=== PATIENT | female | born 1995 | race Caucasian/White ===

== ENCOUNTER 2024-02-15 21:51 | Emergency (ER) | payer OTHER, SELFPAY ==
[2024-02-15 21:55] VITALS: BP 162/106; PULSE 81; RESP 16; TEMP 36.2; O2SAT 100; BMI 22.3
--- NOTE | 2024-02-15 22:31 | ED.WOUNDLAC ---
HPI - Wound/Laceration General Time Seen by Provider: 22:17 Date Seen: 02/15/24 Chief Complaint: Nose Injury/Pain Stated Complaint: Fall, nose lac Time Seen by Provider: 02/15/24 22:17 Source: patient and family ( present) Mode of arrival: ambulatory Limitations: no limitations History of Present Illness HPI narrative: This 28-year-old female was coming into her horse barn, tripped over some rubber matting and hit herself on a metal bar, possibly a bolt that was protruding from it. Tetanus is up-to-date in 2020. There was no loss of consciousness. She sustained a laceration to the bridge of her nose. She did clean this at home, did clean it with hydrogen peroxide. It did bleed. Her nose is sore. No neck pain, no head injury. She maybe had some blood about the right nares. Bleeding is contained at this time. Related Data Home Medications ?Medication ?Instructions ?Recorded ?Confirmed etonogestrel 0.12 mg-ethinyl 1 vag ring vaginal Q4W 02/15/24 02/15/24 estradiol 0.015 mg/24 hr vaginal ring (NuvaRing) fluoxetine 10 mg capsule 10 mg PO DAILY 02/15/24 02/15/24 Previous Rx's ?Medication ?Instructions ?Recorded amoxicillin 875 mg-potassium 1 tab PO BID #13 tabs 02/15/24 clavulanate 125 mg tablet Allergies Allergy/AdvReac Type Severity Reaction Status Date / Time Sulfa (Sulfonamide Allergy Mild hives Verified 02/15/24 22:02 Antibiotics) Review of Systems Narrative: As per HPI. PFSH PFSH Social History Smoking Status: Never smoker How often do you have a drink containing alcohol: monthly or less How many standard drinks containing alcohol do you have on a typical day: 3 or 4 How often do you have six or more drinks on one occasion: Never AUDIT-C Alcohol total score: 2 Non-prescribed substance use: denies use Exam Const: Vital Signs, click to edit/add: Vital Signs - 24 hr 02/15/24 21:55 Temperature 97.1 F L Pulse Rate [Left P ulse Oximeter] 81 Respiratory Rate 16 Blood Pressure [Ri ght Upper Arm] 162/106 H Pulse Oximetry 100 Oxygen Delivery Me thod Room Air This 28-year-old female is ambulatory into the ED of her own accord. She is alert, interactive, no apparent distress. The bridge of her nose is swollen, there is some tenderness over this area. In the center there is a small little stellate laceration. At rest, the wound edges do look well approximated but I can open them and they do go into the subcutaneous tissue. Both of her nares are patent, no active bleeding, no swelling noted, no residual blood noted. The bridge of her nose is the isolated area of trauma. Documenting provider has reviewed patient's vital signs: yes Course Course ED Course: Nursing staff irrigated wound, wound was anesthetized with 1% lidocaine, 3 mL total drawn up. Initial anesthesia with 1 mL seemed adequate. Procedure note: Following standard sterile technique, patient had 2 simple interrupted sutures for stabilization and reapproximation of her nasal laceration. She was quite tender on the bridge of her nose, seemed to be swelling more. Did discuss with her that I would recommend imaging of the nasal bones, standard of care is to do facial CT. She did agree. Reevaluation(s) Time of Reevaluation #1: 23:47 Reevaluation #1: Reviewed that the CT showing bilateral nasal fractures. Given this information, she will be covered with antibiotics. Will give her her 1st dose of Augmentin 875 mg here, rest is sent to the pharmacy. We have discussed wound management. We have discussed follow-up with ENT. Vital Signs Vital signs: Initial Vital Signs Temperature 97.1 F L 02/15/24 21:55 Temperature Source Temporal Artery Scan 02/15/24 21:55 Pulse Rate 81 02/15/24 21:55 Pulse Rhythm Regular 02/15/24 21:55 Respiratory Rate 16 02/15/24 21:55 Blood Pressure 162/106 H 02/15/24 21:55 Blood Pressure Mean 124 H 02/15/24 21:55 Blood Pressure Position Sitting 02/15/24 21:55 Pulse Oximetry 100 02/15/24 21:55 Oxygen Delivery Method Room Air 02/15/24 21:55 Vital Signs Temperature 97.1 F L 02/15/24 21:55 Pulse Rate 81 02/15/24 21:55 Respiratory Rate 16 02/15/24 21:55 Blood Pressure 162/106 H 02/15/24 21:55 Pulse Oximetry 100 02/15/24 21:55 Oxygen Delivery Method Room Air 02/15/24 21:55 Temperature 97.1 F L 02/15/24 21:55 Pulse Rate 81 02/15/24 21:55 Respiratory Rate 16 02/15/24 21:55 Blood Pressure 162/106 H 02/15/24 21:55 Pulse Oximetry 100 02/15/24 21:55 Oxygen Delivery Method Room Air 02/15/24 21:55 Medications Administered Medications: Discontinued Medications Generic Name Dose Route Start Last Admin Trade Name Negra PRN Reason Stop Dose Admin Lidocaine HCl 3 ml 02/15/24 22:34 02/15/24 22:43 Lidocaine 1% Mdv INJECTION 02/15/24 22:35 3 ml ONCE ONE Administration MDM - Wound/Laceration Imaging Data CT- Other: Attestation: I have reviewed the pertinent imaging results. Radiologist's impression: Patient: BARBIE KEYES Facility:?[facility] Patient ID:?[id number] Site Patient ID:?[id number]. Site :?1993 Study:?CT-Facial W/O-02/15/2024 11:15:59 PM Ordering Physician:?Felipa Bullock Final Report: Indication: Nasal injury Technique: CT through the maxillofacial structures with multiplanar reformats without contrast Comparison: None Findings: Orbits: Periorbital tissues are unremarkable. Intraorbital tissues are unremarkable. No orbital fracture appreciated. Paranasal sinuses: No acute abnormality appreciated. Mild sinus disease. Mastoid air cells: No significant abnormality appreciated. Maxilla: No acute fracture. Mandible: No acute fracture. Zygomatic arch, squamous temporal bone, and pterygoid plates: No acute fracture. Nasal bones: Bilateral nasal bone fractures. Visualized cervical spine: No acute abnormality appreciated. Other: No other significant abnormality appreciated. Impression: None bilateral nasal bone fractures. Please note that all CT scans at this facility use dose modulation, iterative reconstruction, and/or weight-based dosing when appropriate to reduce radiation dose to as low as reasonably achievable. Dictated by Isidro Colin MD @ 02/15/2024 11:36:39 PM (Electronic Signature) Discharge Plan Discharge Clinical Impression: Laceration of nose Qualifiers: Encounter type: initial encounter Qualified Code(s): S01.21XA - Laceration without foreign body of nose, initial encounter Fracture of nasal bone Qualifiers: Encounter type: initial encounter Fracture type: open Qualified Code(s): S02.2XXB - Fracture of nasal bones, initial encounter for open fracture Patient Disposition: Home, Self-Care Condition: Stable Instructions: Facial Fracture (ED), Facial Laceration (ED) Additional Instructions: Start antibiotics and take as prescribed. 1st dose was given here in the ER tonight. Use ice, elevate your head as much as you are able to to sleep for the next few nights, this will help decrease swelling. Use bacitracin to the sutures. Need to call the ENT clinic to get scheduled for a follow-up and re-evaluation next week. Phone number to call is [phone]. These sutures may be ready to come out when you see ENT if it is later next week. Activity Level: Activity as Tolerated Prescriptions: New amoxicillin-pot clavulanate 875-125 mg tablet 1 tab PO BID Qty: 13 0RF No Action fluoxetine 10 mg capsule 10 mg PO DAILY etonogestrel-ethinyl estradiol [NuvaRing] 0.12-0.015 mg/24 hr ring 1 vag ring vaginal Q4W Rx Instructions: leave in place for 3 weeks of a 4-week cycle Follow Up/Referrals: Provider,Not a Local [Non-Staff] - Stand Alone Forms: [employer] Info Instructions
[2024-02-15] MEDS: LIDOCAINE 1% MDV 3 ML INJECTION (22:43)
--- NOTE | 2024-02-15 22:53 | CRLHL7_ITS ---
For Patients: As a result of the Cures Act, medical imaging exams and procedure reports are released immediately into your electronic medical record. You may view this report before your referring provider. If you have questions, please contact your health care provider. Indication: Nasal injury Technique: CT through the maxillofacial structures with multiplanar reformats without contrast Comparison: None Findings: Orbits: Periorbital tissues are unremarkable. Intraorbital tissues are unremarkable. No orbital fracture appreciated. Paranasal sinuses: No acute abnormality appreciated. Mild sinus disease. Mastoid air cells: No significant abnormality appreciated. Maxilla: No acute fracture. Mandible: No acute fracture. Zygomatic arch, squamous temporal bone, and pterygoid plates: No acute fracture. Nasal bones: Bilateral nasal bone fractures. Visualized cervical spine: No acute abnormality appreciated. Other: No other significant abnormality appreciated. Impression: None bilateral nasal bone fractures. Please note that all CT scans at this facility use dose modulation, iterative reconstruction, and/or weight-based dosing when appropriate to reduce radiation dose to as low as reasonably achievable. Dictated by Isidro Colin MD @ 02/15/2024 11:36:39 PM (Electronically Signed)
--- OUTSIDE RECORDS SUMMARY | 2024-02-15 23:46 | XMS_ITS | Clinical Summary ---
Author Organization [facility] Address [place], [place] [address] Care Team Providers Care Biomedical Equipment Technician Name Role Phone Silvana Solis MD Primary Care Provider [phone] Allergies Active Allergy Reactions Criticality Noted Date Comments Sulfa (Sulfonamide Antibiotics) Hives 02/25 Medications Medication Sig Dispensed Refills Start Date End Date Status triamcinolone (ARISTOCORT; KENALOG) 0.1 % creamIndications:Loc alized skin eruption Apply topically to affected area(s) three times daily. 80 g 08/23/2023 Active Haloette vaginal ringIndications:Enco unter for counseling regarding contraception INSERT 1 RING VAGINALLY AND LEAVE IN PLACE FOR 3 CONSECUTIVE WEEKS, THEN REMOVE FOR 1 WEEK. REPEAT WITH NEW RING 3 Each 2 09/21/2023 Active FLUoxetine (PROZAC) 10 mg capsuleIndications:A nxiety Take 1 Capsule (10 mg) by mouth once daily in the morning. 90 Capsule 2 12/22/2023 Active hydrOXYzine HCL (ATARAX) 25 mg tabletIndications:In somnia, idiopathic Take 1 Tablet (25 mg) by mouth at bedtime if needed for Anxiety (sleep). 30 Tablet 2 12/22/2023 Active Active Problems Problem Noted Date Diagnosed Date Pap smear for cervical cancer screening 07/27/19 23 Overview: 07/2022 NIL/HPV negative Plan: Pap/HPV due in 5 years Encounters Date Type Department Care Team Description 12/21/2023 Refill [facility] [address] [place] [address] Silvana Solis MD Refill Request from Last 3 Months Immunizations Name Administration Dates Next Due COVID-19 vaccine (Moderna 100mcg/0.5mL) PF, MDV 11/12/2020,10/15/2020 DTP-HIB 10/17/1994, 4,1993,06/04 DTaP 03/27/1998 Hepatitis B (Peds) 1993 Human Papilloma Virus Vaccine 01/11/2012, 012,06/30/2011 Influenza A (H1N1), Live Intranasal 04/15/2009 Influenza, IIV4 07/08/2021,03/18/2020 MMR 03/27/1998,07/25/1994 Meningococcal Vaccine (Menactra) 12/16/2013 Meningococcal Vaccine (Menveo) 02/19/2010 Oral Polio Vaccine 03/27/1998, 5,1993,06/04 Td (Age >=7 Years) 12/01/2020 Tdap 02/28/2007 Varicella Vaccine 02/19/2010 Family History Medical History Relation Name Comments Sleep apnea Father not obese Heart attack Mother blood abnormali ty. Other Mother hysterectomy fo r heavy bleeding. Relation Name Status Comments Father Alive Mother Alive Social History Tobacco Use Types Packs/Day Years Used Date Smoking Tobacco: Never Smokeless Tobacco: Never Tobacco Cessation:Counseling Given: Yes Alcohol Use Standard Drinks/Week Comments Yes 2 (1 standard drink = 0.6 oz pur e alcohol) PHQ-2 Answer Date Recorded PHQ-2 TOTAL SCORE 2 12/22/2023 Social Connections Answer Date Recorded Frequency of Communication with Friends and Fami ly 0 08/23/2023 Financial Resource Strain Answer Date R ecorded Difficulty of Paying Living Expenses 3 08/23/2023 Difficulty of Paying Living Expenses Not on file 08/23/2023 Food Insecurity Answer Date Recorded Worried About Running Out of Food in the Last Ye ar 1 08/23/2023 Transportation Needs Answer Date Record ed Lack of Transportation (Medical) 1 08/23/2023 Housing Stability Answer Date Recorded Unable to Pay for Housing in the Last Year 1 08/23/2023 Sex and Gender Information Value Date Recorded Sex Assigned at Not on file Gender Identity Not on file Sexual Orientation Not on file Obstetrics History Last Filed Vital Signs Vital Sign Reading Time Taken Comments Blood Pressure 122/82 08/23/2023 3:49 PM TELEVISION AND RADIO REPAIRER Pulse 75 08/23/2023 3:27 PM TELEVISION AND RADIO REPAIRER Temperature - - Respiratory Rate - - Oxygen Saturation 100% 08/23/2023 3:27 PM TELEVISION AND RADIO REPAIRER Inhaled Oxygen Concentration - - Weight 60.1 kg (132 lb 9.6 oz) 08/23/2023 3:27 P M TELEVISION AND RADIO REPAIRER Height 164.4 cm (5' 4.72) 08/23/2023 3:27 PM CS T Body Mass Index 22.25 08/23/2023 3:27 PM TELEVISION AND RADIO REPAIRER Plan of Treatment Health Maintenance Due Date Last Done Comments HIV for age 15-65 2008 Hepatitis C screening for age 18-79 2011 COVID-19 vaccine series () 02/24/2023 07/08/2021, 11/12/2020, 10/15/2020 Influenza for age 9-49 02/25/2024 , 03/18/2020, 04/15/2009 BMI (ht and wt on same day) for age 18+ 08/23/2024 08/23/2023, 08/19/2022, 03/18/2020 Depression screening for age 12+ 12/21/2024 12/22/2023, 12/21/2023, 08/23/2023, Additional history exists Pap test for age 21-65 08/19/2027 08/19/2022, 2022 Tetanus booster 12/01/2030 12/01/2020, 02/28/2007 Tdap Completed 02/28/2007 Pneumococcal series for age 6-64 Aged Out No longer eligible based on patient's age to complete this topic Procedures Procedure Name Priority Date/Time Associated Diagnosis Comments HPV THIN PREP Routine 08/19/2022 11:02 AM TELEVISION AND RADIO REPAIRER Screening for cervical cancer from Last 3 Months or Most Recently Relevant to Health Maintenance Results * HPV HIGH RISK (08/19/2022 11:02 AM TELEVISION AND RADIO REPAIRER) TYPE 16 Negative Negative 08/24/2022 5:30 PM TELEVISION AND RADIO REPAIRER [facility] TYPE 18 Negative Negative 08/24/2022 5:30 PM TELEVISION AND RADIO REPAIRER [facility] OTHER HIGH RISK TYPES Negative Negative 08/24/2022 5:30 PM TELEVISION AND RADIO REPAIRER [facility] Other (Cervical) Non-Blood / Unknown 08/19/2022 11:02 AM TELEVISION AND RADIO REPAIRER 08/22/2022 12:34 PM TELEVISION AND RADIO REPAIRER Narrative [facility] - 08/24/2022 5:30 PM TELEVISION AND RADIO REPAIRER HPV types 16, 18, 31, 33, 35, 39, 45, 51, 52, 56, 58, 59, 66 and 68 DNA were undetectable or below the pre-set threshold. Methodology: Accumulate Sary 4800 HPV Test Silvana Solis MD MICROBIOLOGY [facility] [address] [place] [address], from Last 3 Months or Most Recently Relevant to Health Maintenance Care Teams Biomedical Equipment Technician Relationship Specialty Start Date End Date Silvana Solis MD [address] [place] [address] PCP - General Family Practice 11/06/20
--- OUTSIDE RECORDS SUMMARY | 2024-02-15 23:46 | XMS_ITS | Clinical Summary ---
Author Organization [facility] Address [address] [place] [address] Care Team Providers Care Cashier Tube Room Name Role Phone Lidia Jauregui MD Primary Care Provider [phone] Source Comments This disclosure is being made pursuant to the [employer] program and maynot contain all information available regarding this patient.[facility] Allergies No known active allergies Social History Tobacco Use Types Packs/Day Years Used Date Smoking Tobacco: Never Assessed Sex and Gender Information Value Date Recorded Sex Assigned at Not on file Gender Identity Not on file Sexual Orientation Not on file Last Filed Vital Signs Vital Sign Reading Time Taken Comments Blood Pressure 153/88 06/26/2015 9:18 PM RECORDS OFFICER Pulse 84 06/26/2015 8:30 PM RECORDS OFFICER Temperature 36.4 ??C (97.5 ??F) 06/26/2015 8:30 PM CS T Respiratory Rate 16 06/26/2015 8:30 PM RECORDS OFFICER Oxygen Saturation 100% 06/26/2015 8:30 PM RECORDS OFFICER Inhaled Oxygen Concentration - - Weight - - Height 162.6 cm (5' 4) 06/26/2015 8:30 PM RECORDS OFFICER Body Mass Index - - Plan of Treatment Health Maintenance Due Date Last Done Comments Lab-Cholesterol Screening 1993 Lab-Hepatitis C Screening 1993 Annual Wellness Visit 2011 Hepatitis B Vaccine (1 of 3 - 19+ 3-dose series) 2012 Tetanus/Pertussis Vaccine Teen/Adult (1 - Tdap) 2012 Cervical Cancer Screening-Pap Smear 2014 COVID-19 Vaccine ( - 2022-2 4 season) 2023 Influenza Vaccine (#1) 2024 Zoster (Shingles) Vaccine 50 + (1 of 2) 2043 HIB Vaccine Aged Out No longer eligi ble based on patient's age to complete this topic HPV Vaccine (F:9-26YO,M: 9-22) Aged Out No longer eligible based on patient's age to complete this topic Hepatitis A Vaccine Aged Out No longe r eligible based on patient's age to complete this topic IPV Vaccine Aged Out No longer eligi ble based on patient's age to complete this topic Meningococcal Conjugate Vaccine Aged Out No longer eligible based on patient's age to complete this topic Pneumococcal Vaccines 0-64 yo Aged Out No longer eligible based on patient's age to complete this topic RSV < 20 Months Aged Out No longer el igible based on patient's age to complete this topic Care Teams Cashier Tube Room Relationship Specialty Start Date End Date Lidia Jauregui MD [address] [place] [address] PCP - General Family Medicine 06/26/15
[2024-02-15] MEDS: AMOXICILLIN/CLAVULANATE 875 mg/125 mg TABLET PO (23:54)
== END 2024-02-16 | disposition home or self-care (01) ==
LOC: ED 23:44
PROVIDERS: Emergency Provider Family Medicine; PCP Family Medicine
DX: S02.2XXA Fracture of nasal bones, initial encounter for closed fracture (principal); W01.119A Fall on same level from slipping, tripping and stumbling with subsequent striking against unspecified sharp object, initial encounter; S01.21XA Laceration without foreign body of nose, initial encounter
CPT/HCPCS: 12011; 70486; 99284; A9270

== ENCOUNTER 2024-03-01 09:01 | Day surgery (SDC) | payer OTHER, SELFPAY ==
[2024-03-01] VITALS (11 sets, daily range): BP systolic 132–149; BP diastolic 85–99; PULSE 60–99; RESP 16; TEMP 36.3–36.8; O2SAT 97–100; BMI 21.9
--- OUTSIDE RECORDS SUMMARY | 2024-03-01 09:04 | XMS_ITS | Clinical Summary ---
Author Organization [facility] Address [place], [place] [address] Care Team Providers Care Aircraft Body Repairer Name Role Phone Silvana Solis MD Primary Care Provider [phone] Allergies Active Allergy Reactions Criticality Noted Date Comments Sulfa (Sulfonamide Antibiotics) Hives 02/25 Medications Medication Sig Dispensed Refills Start Date End Date Status Haloette vaginal ringIndications:En counter for counseling regarding contraception INSERT 1 RING VAGINALLY AND LEAVE IN PLACE FOR 3 CONSECUTIVE WEEKS, THEN REMOVE FOR 1 WEEK. REPEAT WITH NEW RING 3 Each 2 09/21/2023 Active FLUoxetine (PROZAC) 10 mg capsuleIndications :Anxiety Take 1 Capsule (10 mg) by mouth once daily in the morning. 90 Capsule 2 12/22/2023 Active hydrOXYzine HCL (ATARAX) 25 mg tabletIndications: Insomnia, idiopathic Take 1 Tablet (25 mg) by mouth at bedtime if needed for Anxiety (sleep). 30 Tablet 2 12/22/2023 Active triamcinolone (ARISTOCORT; KENALOG) 0.1 % creamIndications:L ocalized skin eruption Apply topically to affected area(s) three times daily. 80 g 08/23/2023 4 Discontinue d(*Med complete/Re gimen complete/Le christa of care change) Active Problems Problem Noted Date Diagnosed Date Pap smear for cervical cancer screening 07/27/19 23 Overview: 07/2022 NIL/HPV negative Plan: Pap/HPV due in 5 years Encounters Date Type Department Care Team Description 02/29/2024 10:50 AM CDT Office Visit [facility] [address] [place] [address] Lawrence Jorge MD Preoperative Exam (03/01/24, nose, Dr. Jaquez, [place]) 02/29/2024 Travel 12/21/2023 Refill [facility] [address] [place] [address] Silvana Solis MD Refill Request from Last 3 Months Immunizations Name Administration Dates Next Due COVID-19 vaccine (Moderna 100mcg/0.5mL) PF, MDV 11/12/2020,10/15/2020 DTP-HIB 10/17/1994, 4,1993,06/04 DTaP 03/27/1998 Hepatitis B (Peds) 1993 Human Papilloma Virus Vaccine 01/11/2012, 012,06/30/2011 Influenza A (H1N1), Live Intranasal 04/15/2009 Influenza, IIV4 07/08/2021,03/18/2020 MENINGOCOCCAL VACCINE 2 VIAL 2MO-55YO (MENVEO) 02/19/2010 MMR 03/27/1998,07/25/1994 Meningococcal Vaccine (Menactra) 12/16/2013 Oral Polio Vaccine 03/27/1998, 5,1993,06/04 Td (Age >=7 Years) 12/01/2020 Tdap 02/28/2007 Varicella Vaccine 02/19/2010 Family History Medical History Relation Name Comments Sleep apnea Father not obese Heart attack Mother blood abnormali ty. Other Mother hysterectomy fo r heavy bleeding. Anesthesia Problem No Family History Relation Name Status Comments Father Alive Mother [...] Sign Reading Time Taken Comments Blood Pressure 117/76 02/29/2024 11:20 AM CDT Pulse 89 02/29/2024 11:20 AM CDT Temperature 37.1 ??C (98.7 ??F) 02/29/2024 11:20 AM C DT Respiratory Rate - - Oxygen Saturation 98% 02/29/2024 11:20 AM CDT Inhaled Oxygen Concentration - - Weight 58.1 kg (128 lb 1.6 oz) 02/29/2024 11:20 AM CDT Height 164.3 cm (5' 4.7) 02/29/2024 11:20 AM CD T Body Mass Index 21.52 02/29/2024 11:20 AM CDT Plan of Treatment Health Maintenance Due Date Last Done Comments HIV for age 15-65 2008 Hepatitis C screening for age 18-79 2011 COVID-19 vaccine series ( season) 2024 07/08/2021, 11/12/2020, 10/15/2020 Influenza for age 9-49 02/25/2024 , 03/18/2020, 04/15/2009 Depression screening for age 12+ 12/21/2024 12/22/2023, 12/21/2023, 08/23/2023, Additional history exists BMI (ht and wt on same day) for age 18+ 02/28/2025 02/29/2024, 08/23/2023, 08/19/2022, Additional history exists Pap test for age 21-65 08/19/2027 08/19/2022, 2022 Tetanus booster 12/01/2030 12/01/2020, 02/28/2007 Tdap Completed 02/28/2007 Pneumococcal series for age 6-64 Aged Out No longer eligible based on patient's age to complete this topic Procedures Procedure Name Priority Date/Time Associated Diagnosis Comments CBC WITH AUTO DIFFERENTIAL Routine 02/29/2024 10:45 AM CDT Pre-op exam CBC WITH AUTO DIFFERENTIAL Routine 02/29/2024 10:45 AM CDT Pre-op exam HPV THIN PREP Routine 08/19/2022 11:02 AM [facility] Screening for cervical cancer from Last 3 Months or Most Recently Relevant to Health Maintenance Results * CBC WITH AUTO DIFFERENTIAL (02/29/2024 10:45 AM CDT) WHITE BLOOD COUNT 6.1 4.5 - 11.0 thou/cu mm 02/29/2024 10:49 AM CDT [facility] RED BLOOD COUNT 4.97 4.00 - 5.20 mil/cu mm 02/29/2024 10:49 AM CDT [facility] HEMOGLOBIN 15.1 12.0 - 16.0 g/dL 02/29/2024 10:49 AM CDT [facility] HEMATOCRIT 44.4 33.0 - 51.0 % 02/29/2024 10:49 AM CDT [facility] MCV 89 80 - 100 fL 02/29/2024 10:49 AM CDT [facility] MCH 30.4 26.0 - 34.0 pg 02/29/2024 10:49 AM CDT [facility] MCHC 34.0 32.0 - 36.0 g/dL 02/29/2024 10:49 AM CDT [facility] RDW 13.2 11.5 - 15.5 % 02/29/2024 10:49 AM CDT [facility] PLATELET COUNT 272 140 - 440 thou/cu mm 02/29/2024 10:49 AM CDT [facility] MPV 10.1 6.5 - 11.0 fL 02/29/2024 10:49 AM CDT [facility] % NEUT 53.7 % 02/29/2024 10:49 AM CDT [facility] % LYMPH 39.2 % 02/29/2024 10:49 AM CDT [facility] % MONO 5.1 % 02/29/2024 10:49 AM CDT [facility] % EOS 1.3 % 02/29/2024 10:49 AM CDT [facility] % BASO 0.7 % 02/29/2024 10:49 AM CDT [facility] ABSOLUTE NEUTROPHILS 3.3 1.7 - 7.0 thou/cu mm 02/29/2024 10:49 AM CDT [facility] ABSOLUTE LYMPHOCYTES 2.4 0.9 - 2.9 thou/cu mm 02/29/2024 10:49 AM CDT [facility] ABSOLUTE MONOCYTES 0.3 <0.9 thou/cu mm 02/29/2024 10:49 AM CDT [facility] ABSOLUTE EOSINOPHILS 0.1 <0.5 thou/cu mm 02/29/2024 10:49 AM CDT [facility] ABSOLUTE BASOPHILS 0.0 <0.3 thou/cu mm 02/29/2024 10:49 AM CDT [facility] Blood BLOOD SPECIMEN / Unknown Venipuncture / Unknown 02/29/2024 10:45 AM CDT 02/29/2024 10:46 AM CDT Lawrence [place] [address], * HPV HIGH RISK (08/19/2022 11:02 AM [facility]) TYPE 16 Negative Negative 08/24/2022 5:30 PM [facility] TYPE 18 Negative Negative 08/24/2022 5:30 PM [facility]ERR[facility] GR[facility] OTHER HIGH RISK TYPES Negative Negative 08/24/2022 5:30 PM [facility]ERR[facility] GR[facility] Other (Cervical) Non-Blood / Unknown 08/19/2022 11:02 AM [facility] 08/22/2022 12:34 PM [facility] Narrative [facility] - 08/24/2022 5:30 PM [facility] HPV types 16, 18, 31, 33, 35, 39, 45, 51, 52, 56, 58, 59, 66 and 68 DNA were undetectable or below the pre-set threshold. Methodology: Low Sary 4800 HPV Test Silvana Solis MD MICROBIOLOGY [facility] [address] [place] [address], from Last 3 Months or Most Recently Relevant to Health Maintenance Care Teams Aircraft Body Repairer Relationship Specialty Start Date End Date Silvana Solis MD [address] [place] [address] PCP - General Family Practice 11/06/20
--- OUTSIDE RECORDS SUMMARY | 2024-03-01 09:04 | XMS_ITS | Clinical Summary ---
Author Organization [employer] Address [address] [place] [id number] Care Team Providers Care Nurse Staff Industrial Name Role Phone Lidia Jauregui MD Primary Care Provider [phone] Source Comments This disclosure is being made pursuant to the [employer] program and maynot contain all information available regarding this patient.[employer] Allergies No known active allergies Social History Tobacco Use Types Packs/Day Years Used Date Smoking Tobacco: Never Assessed Sex and Gender Information Value Date Recorded Sex Assigned at Not on file Gender Identity Not on file Sexual Orientation Not on file Last Filed Vital Signs Vital Sign Reading Time Taken Comments Blood Pressure 153/88 06/26/2015 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 Pulse 84 06/26/2015 8:30 PM WIND TUNNEL ENGINEER Temperature 36.4 ??C (97.5 ??F) 06/26/2015 8:30 PM CS T Respiratory Rate 16 06/26/2015 8:30 PM WIND TUNNEL ENGINEER Oxygen Saturation 100% 06/26/2015 8:30 PM WIND TUNNEL ENGINEER Inhaled Oxygen Concentration - - Weight - - Height 162.6 cm (5' 4) 06/26/2015 8:30 PM WIND TUNNEL ENGINEER Body Mass Index - - Plan of Treatment Health Maintenance Due Date Last Done Comments Lab-Cholesterol Screening 1993 Lab-Hepatitis C Screening 1993 Annual Wellness Visit 2011 Hepatitis B Vaccine (1 of 3 - 19+ 3-dose series) 2012 Tetanus/Pertussis Vaccine Teen/Adult (1 - Tdap) 2012 Cervical Cancer Screening-Pap Smear 2014 COVID-19 Vaccine ( - 2022-2 4 season) 2024 Influenza Vaccine (#1) 2024 Zoster (Shingles) Vaccine [...] age to complete this topic Care Teams Nurse Staff Industrial Relationship Specialty Start Date End Date Lidia Jauregui MD [address] [place] [address] PCP - General Family Medicine 06/26/15
[2024-03-01 09:18] LABS: Ur HCG Qualitative* Negative (Negative)
[2024-03-01] MEDS: LACTATED RINGERS 1000 ML 1,000 ML 100 ML IV (09:40)
[2024-03-01] MEDS: SODIUM CHLORIDE 0.9 % (FLUSH) 10 ML SYRINGE IVF (09:40)
[2024-03-01] MEDS: OXYMETAZOLINE 0.05% NASAL SPRAY 2 SPRAY NOSTRIL-B (09:40)
--- NOTE | 2024-03-01 10:26 | SUR.OPER ---
PATIENT QUESTIONS ANSWERED SATISFACTORILY PREOPERATIVELY. PATIENT BROUGHT TO OR #1 PER CART. Patient positioned supine on OR #1 bed. Perioperative team wrapped arms bilaterally at patient side with drawsheet in a neutral position. ? Final approval of positioning by surgeon.
[2024-03-01] MEDS: MUPIROCIN 1 GM PACKET 1 APPLIC TOPICAL (11:00)
--- NOTE | 2024-03-01 11:06 | W.PM.ENTPROC ---
Procedure Note Date of procedure: 03/01/24 Procedure: Preop diagnosis depressed right nasal fracture Postoperative diagnosis same Procedure close reduction nasal fracture Under general endotracheal anesthesia patient was prepped and draped in usual fashion. The fracture was marked externally with the fracture elevator. This was then placed intranasally and the fracture reduced. The bone was fairly loose so a Merocel pack was placed beneath the pack fracture line. It was 1st coated in Bactroban. An external dressing consisting of benzoin and Steri tape was applied. The patient procedure well was taken recovery in satisfactory condition blood loss less than 10 mL. Surgeon: Fredo Javed MD
--- NOTE | 2024-03-01 11:18 | W.ANESCHARGE ---
Anesthesia Charges Start Date/Time Anesthesia Start Date: 03/01/24 Anesthesia Start Time: 10:48 Stop Date/Time Anesthesia Stop Date: 03/01/24 Anesthesia Stop Time: 11:18
--- NOTE | 2024-03-01 11:19 | W.ANESCHARGE ---
Anesthesia Charges Start Date/Time Anesthesia Start Date: 03/01/24 Anesthesia Start Time: 10:48 Stop Date/Time Anesthesia Stop Date: 03/01/24 Anesthesia Stop Time: 11:18
[2024-03-01] MEDS: IBUPROFEN 200 MG TABLET PO (11:58)
[2024-03-01] MEDS: ACETAMINOPHEN 325 MG TABLET PO (11:58)
== END 2024-03-01 13:00 | disposition home or self-care (01) ==
PROVIDERS: Anesthesiology; PCP Family Medicine; Visit Provider Otolaryngology
PROC: 0NSBXZZ Reposition Nasal Bone, External Approach (ICD-10-PCS; CPT 21320; principal; 2024-03-01 10:15)
DX: S02.2XXA Fracture of nasal bones, initial encounter for closed fracture (principal)
CPT/HCPCS: 21320; 00160; 81025; A9270; J0330; J1100; J2250; J2405; J2704; J3010; J7120